=== PATIENT | female | born 1980 | race Two or more races ===

== ENCOUNTER 2022-03-18 17:24 | Emergency (ER) | payer SELFPAY ==
[~2022-03-18] VITALS: Ht 167.6 cm; Wt 108.9 kg
[2022-03-18 17:50] VITALS: BP 101/55
[2022-03-18] MEDS ORDERED: OMEP20TA44 PO (18:41)
== END 2022-03-18 19:05 | disposition home or self-care (01) ==
LOC: ER 17:24
DX: K29.70 Gastritis, unspecified, without bleeding (principal)
CPT/HCPCS: 93005

== ENCOUNTER 2023-03-26 22:56 | Emergency (ER) | payer MEDICAID ==
[~2023-03-26] VITALS: Ht 167.6 cm; Wt 109.0 kg
[~2023-03-26 22:56] MED LIST: OMEP20TA44 PO
[2023-03-26 23:24] LABS: Basophils # (auto) 0 10 ^3/uL (0-0.2); Basophils % (auto) 0.5 % (0.0-2.0); Eosinophils # (auto) 0.1 10 ^3/uL (0-0.8); Eosinophils % (auto) 1.3 % (0.0-7.0); Hematocrit 40.9 % (36.0-46.0); Lymphocytes # (auto) 2.3 10 ^3/uL (0.4-5.4); Lymphocytes % (auto) 26.1 % (10.0-50.0); Mean Corpuscular Hemoglobin 32.5 pg (28.0-32.0); Mean Corpuscular Hgb Conc. 34.2 g/dL (32.0-36.0); Monocytes # (auto) 0.6 10 ^3/uL (0-1.3); Monocytes % (auto) 6.6 % (0.0-12.0); Neutrophils # (auto) 5.8 10 ^3/uL (1.6-8.6); Neutrophils % (auto) 65.5 % (37.0-80.0); Red Blood Cells 4.31 10^6/uL (4.0-5.20); Red Cell Distribution Width 12.6 % (11.8-14.3); White Blood Cell 8.8 10^3/uL (4.4-10.8)
[2023-03-26 23:39] LABS: Albumin 3.1 g/dL (3.4-5.0); Calcium 8.4 mg/dL (8.5-10.1); Potassium 4.3 mmol/L (3.5-5.1)
[2023-03-26 23:42] LABS: Bilirubin, Total 0.3 mg/dL (0.2-1.0); Total Protein 7.2 g/dL (6.4-8.2)
[2023-03-27 03:07] LABS: Urine Bacteria FEW /hpf (None Seen); Urine Blood Negative /uL (Negative); Urine Specific Gravity 1.015 (1.001-1.035); Urine WBC 12 /hpf (0 - 5)
[2023-03-27] MEDS ORDERED: HYDROcodone-ACET 5/325MG TAB PO ONE (04:15)
[2023-03-27 06:00] VITALS: BP 95/55
[2023-03-27] MEDS ORDERED: PERCOT PO ×2 (06:30)
[2023-03-28] MEDS ORDERED: ACET1CAP14 PO (00:43)
[2023-03-28] MEDS ORDERED: IBUP200C14 PO (00:43)
== END 2023-03-27 06:43 | disposition home or self-care (01) ==
LOC: ER 22:56
DX: K80.20 Calculus of gallbladder without cholecystitis without obstruction (principal); R07.89 Other chest pain; K21.9 Gastro-esophageal reflux disease without esophagitis; R06.02 Shortness of breath; Z79.899 Other long term (current) drug therapy
CPT/HCPCS: 36415; 71045; 74176; 80053; 81001; 83735; 83880; 84484; 85025; 93005

== ENCOUNTER 2023-03-27 12:18 | Inpatient (IN) | payer MEDICAID ==
[~2023-03-27] VITALS: Ht 152.4 cm; Wt 114.6 kg
[~2023-03-27 12:18] MED LIST changes: +PERCOT PO
[2023-03-27] MEDS ORDERED: PANTOPRAZOLE 40 MG/10 ML VIAL INJ IV ONE (13:00)
[2023-03-27] MEDS ORDERED: ONDANSETRON HCL 4 MG/2 ML VIAL IV ONE (13:00)
[2023-03-27] MEDS ORDERED: SODIUM CHLORIDE 0.9% 1,000 ML IVB ONE (13:00)
[2023-03-27 13:23] LABS: Basophils # (auto) 0 10 ^3/uL (0-0.2); Basophils % (auto) 0.6 % (0.0-2.0); Eosinophils # (auto) 0.1 10 ^3/uL (0-0.8); Hematocrit 41.4 % (36.0-46.0); Hemoglobin 14.3 g/dL (12.2-16.2); Lymphocytes # (auto) 2.1 10 ^3/uL (0.4-5.4); Lymphocytes % (auto) 32.8 % (10.0-50.0); Mean Corpuscular Hemoglobin 32.5 pg (28.0-32.0); Mean Corpuscular Hgb Conc. 34.5 g/dL (32.0-36.0); Mean Corpuscular Volume 94.3 fL (80.0-100.0); Monocytes # (auto) 0.4 10 ^3/uL (0-1.3); Monocytes % (auto) 5.5 % (0.0-12.0); Neutrophils # (auto) 3.8 10 ^3/uL (1.6-8.6); Neutrophils % (auto) 60.1 % (37.0-80.0); Nucleated Red Blood Cells % 0.1 %; Red Blood Cells 4.39 10^6/uL (4.0-5.20); Red Cell Distribution Width 12.7 % (11.8-14.3); White Blood Cell 6.4 10^3/uL (4.4-10.8)
[2023-03-27] MEDS: MORPHINE SULFATE 4 MG/ML SYR/VIAL IV ONE ×2 (14:34→14:43)
[2023-03-27] MEDS ORDERED: HYDROcodone-ACET 5/325MG TAB PO ONE ×2 (14:45→21:00)
[2023-03-27] MEDS ORDERED: SODIUM CHLORIDE 0.9% 1,000 ML IV ONE (14:45)
[2023-03-27] MEDS: SODIUM CHLORIDE 0.9% 1,000 ML IV SCH ×2 (17:02→23:05)
[2023-03-27] MEDS ORDERED: ONDANSETRON HCL 4 MG/2 ML VIAL IV PRN (18:00)
[2023-03-27] MEDS: MORPHINE SULFATE INJ 2 MG/ml SYRG IV PRN (18:51)
[2023-03-27] MEDS ORDERED: KETOROLAC TROMETH 30 MG/ML 1ML VIAL IV ONE (21:00)
[2023-03-27] MEDS ORDERED: KETOROLAC TROMETH 30 MG/ML 1ML VIAL IV PRN (21:00)
[2023-03-27] MEDS: metroNIDAZOLE 500MG/100ML 100 ML IV SCH (22:44)
[2023-03-27 23:33] VITALS: BP 133/65
[2023-03-28] MEDS ORDERED: IBUP200C14 PO (00:43)
[2023-03-28] MEDS ORDERED: ACET1CAP14 PO (00:43)
[2023-03-28] MEDS: metroNIDAZOLE 500MG/100ML 100 ML IV SCH (05:33)
[2023-03-28 05:36] LABS: Basophils # (auto) 0 10 ^3/uL (0-0.2); Basophils % (auto) 0.3 % (0.0-2.0); Eosinophils # (auto) 0 10 ^3/uL (0-0.8); Eosinophils % (auto) 0.2 % (0.0-7.0); Hematocrit 37.3 % (36.0-46.0); Hemoglobin 12.9 g/dL (12.2-16.2); Lymphocytes # (auto) 1.4 10 ^3/uL (0.4-5.4); Lymphocytes % (auto) 19.2 % (10.0-50.0); Mean Corpuscular Hemoglobin 32.5 pg (28.0-32.0); Mean Corpuscular Hgb Conc. 34.5 g/dL (32.0-36.0); Mean Corpuscular Volume 94.1 fL (80.0-100.0); Monocytes # (auto) 0.5 10 ^3/uL (0-1.3); Monocytes % (auto) 7.3 % (0.0-12.0); Neutrophils # (auto) 5.1 10 ^3/uL (1.6-8.6); Nucleated Red Blood Cells % 0.1 %; Red Blood Cells 3.96 10^6/uL (4.0-5.20); Red Cell Distribution Width 12.6 % (11.8-14.3)
[2023-03-28 05:56] LABS: Albumin 2.6 g/dL (3.4-5.0); BUN/Creatinine Ratio 11.3 (10.0-20.0); Calcium 7.7 mg/dL (8.5-10.1); Potassium 3.6 mmol/L (3.5-5.1)
[2023-03-28 05:59] LABS: Bilirubin, Total 3.1 mg/dL (0.2-1.0); Total Protein 6.1 g/dL (6.4-8.2)
[2023-03-28 08:21] LABS: INR 1.05 (0.9-1.15); Partial Thromboplastin Time 26.3 SEC (24.5-34.5)
[2023-03-28 08:30] VITALS: BP 162/73
[2023-03-28] MEDS ORDERED: cefTRIAXone 1GM/50ML D5W 50 ML IV SCH (09:00)
[2023-03-28] MEDS: PANTOPRAZOLE 40 MG/10 ML VIAL INJ IV SCH (09:11)
[2023-03-28] MEDS: SODIUM CHLORIDE 0.9% 1,000 ML IV SCH (09:11)
[2023-03-28] MEDS ORDERED: MIDAZOLAM HCL 2MG/2ML 2ml VIAL (1mg/ml) ONE (10:49)
[2023-03-28] MEDS ORDERED: fentaNYL CITRATE 100 MCG/2 ML VL ONE (10:49)
[2023-03-28] MEDS ORDERED: MEPERIDINE HCL (50 MG/ML) 1 ML VIAL ONE (10:49)
[2023-03-28] MEDS ORDERED: PROPOFOL 10 MG/ML 20 ML IV ONE (12:05)
[2023-03-28] MEDS ORDERED: DexAMETHasone SOD PHOS 10MG/1ML VIAL INJ ONE (12:05)
[2023-03-28] MEDS ORDERED: MORPHINE SULFATE 4 MG/ML SYR/VIAL IV PRN (12:15)
[2023-03-28] MEDS ORDERED: ePHEDrine SULFATE 50 MG/ML AMP IV PRN (12:15)
[2023-03-28] MEDS ORDERED: MIDAZOLAM HCL 2MG/2ML 2ml VIAL (1mg/ml) IV PRN (12:15)
[2023-03-28] MEDS ORDERED: ONDANSETRON HCL 4 MG/2 ML VIAL IV PRN (12:15)
[2023-03-28] MEDS ORDERED: LABETALOL HCL 5 MG/ML 4ML SYRINGE IV PRN (12:15)
[2023-03-28] MEDS ORDERED: HYDROmorphone HCL 2 MG/ML VL/or syr IV PRN (12:15)
[2023-03-28] MEDS ORDERED: ETOMIDATE (2MG/ML) 20ML VIAL IV ONE (13:29)
[2023-03-28] MEDS ORDERED: ROCURONIUM 10MG/ML 10ML VIAL IV ONE (13:29)
[2023-03-28] MEDS ORDERED: ONDANSETRON HCL 4 MG/2 ML VIAL IV ONE (13:29)
[2023-03-28 16:30] VITALS: BP 115/74
[2023-03-28] MEDS: MORPHINE SULFATE INJ 2 MG/ml SYRG IV PRN (16:50)
[2023-03-28 22:00] VITALS: BP 119/70
[2023-03-29] MEDS: MORPHINE SULFATE INJ 2 MG/ml SYRG IV PRN (01:13)
[2023-03-29 05:00] VITALS: BP 117/66
[2023-03-29 06:46] LABS: Potassium 3.8 mmol/L (3.5-5.1)
[2023-03-29 06:48] LABS: Basophils # (auto) 0 10 ^3/uL (0-0.2); Basophils % (auto) 0.1 % (0.0-2.0); Eosinophils # (auto) 0 10 ^3/uL (0-0.8); Hematocrit 36.3 % (36.0-46.0); Hemoglobin 12.5 g/dL (12.2-16.2); Lymphocytes % (auto) 13.2 % (10.0-50.0); Mean Corpuscular Hemoglobin 32.4 pg (28.0-32.0); Mean Corpuscular Hgb Conc. 34.3 g/dL (32.0-36.0); Mean Corpuscular Volume 94.4 fL (80.0-100.0); Monocytes # (auto) 0.4 10 ^3/uL (0-1.3); Monocytes % (auto) 5.2 % (0.0-12.0); Neutrophils # (auto) 6.1 10 ^3/uL (1.6-8.6); Neutrophils % (auto) 81.5 % (37.0-80.0); Red Blood Cells 3.85 10^6/uL (4.0-5.20); Red Cell Distribution Width 12.8 % (11.8-14.3); White Blood Cell 7.5 10^3/uL (4.4-10.8)
[2023-03-29 06:56] LABS: Albumin 2.6 g/dL (3.4-5.0); BUN/Creatinine Ratio 6.7 (10.0-20.0); Bilirubin, Total 2.7 mg/dL (0.2-1.0); Calcium 8.2 mg/dL (8.5-10.1); Total Protein 6.2 g/dL (6.4-8.2)
[2023-03-29 08:00] VITALS: BP 130/73
[2023-03-29] MEDS: PANTOPRAZOLE 40 MG/10 ML VIAL INJ IV SCH (08:38)
[2023-03-29 12:00] VITALS: BP 117/66
[2023-03-29 16:00] VITALS: BP 114/68
[2023-03-29 22:00] VITALS: BP 124/65
[2023-03-30] MEDS ORDERED: MELATONIN 5 MG TAB PO ONE (00:15)
[2023-03-30 05:00] VITALS: BP 107/57
[2023-03-30 05:51] LABS: Albumin 2.6 g/dL (3.4-5.0); Calcium 8.2 mg/dL (8.5-10.1); Potassium 3.5 mmol/L (3.5-5.1)
[2023-03-30 05:54] LABS: BUN/Creatinine Ratio 7.8 (10.0-20.0); Bilirubin, Total 1.1 mg/dL (0.2-1.0); Total Protein 6.6 g/dL (6.4-8.2)
[2023-03-30 06:25] LABS: Basophils # (auto) 0 10 ^3/uL (0-0.2); Basophils % (auto) 0.3 % (0.0-2.0); Eosinophils # (auto) 0 10 ^3/uL (0-0.8); Eosinophils % (auto) 0.6 % (0.0-7.0); Hematocrit 37.6 % (36.0-46.0); Hemoglobin 12.9 g/dL (12.2-16.2); Lymphocytes # (auto) 1.2 10 ^3/uL (0.4-5.4); Lymphocytes % (auto) 19.2 % (10.0-50.0); Mean Corpuscular Hemoglobin 32.5 pg (28.0-32.0); Mean Corpuscular Hgb Conc. 34.3 g/dL (32.0-36.0); Mean Corpuscular Volume 94.8 fL (80.0-100.0); Monocytes # (auto) 0.3 10 ^3/uL (0-1.3); Monocytes % (auto) 5.2 % (0.0-12.0); Neutrophils # (auto) 4.5 10 ^3/uL (1.6-8.6); Neutrophils % (auto) 74.7 % (37.0-80.0); Nucleated Red Blood Cells % 0.2 %; Red Blood Cells 3.96 10^6/uL (4.0-5.20); Red Cell Distribution Width 12.7 % (11.8-14.3)
[2023-03-30 09:00] VITALS: BP 118/65
[2023-03-30] MEDS ORDERED: LEVO500T91 PO (10:23)
[2023-03-30] MEDS ORDERED: MET500T PO (10:23)
[2023-03-30] MEDS ORDERED: HYDR-4902 PO (10:23)
[2023-03-30] MEDS ORDERED: PANT40T PO (10:26)
[2023-03-30] MEDS: PANTOPRAZOLE 40 MG/10 ML VIAL INJ IV SCH (11:43)
[2023-03-30 14:00] VITALS: BP 119/71
[2023-03-30 14:35] LABS: Basophils # (auto) 0 10 ^3/uL (0-0.2); Basophils % (auto) 0.3 % (0.0-2.0); Eosinophils # (auto) 0 10 ^3/uL (0-0.8); Eosinophils % (auto) 0.6 % (0.0-7.0); Hemoglobin 14.1 g/dL (12.2-16.2); Lymphocytes # (auto) 0.6 10 ^3/uL (0.4-5.4); Lymphocytes % (auto) 16.3 % (10.0-50.0); Mean Corpuscular Hemoglobin 32.3 pg (28.0-32.0); Mean Corpuscular Hgb Conc. 33.5 g/dL (32.0-36.0); Mean Corpuscular Volume 96.4 fL (80.0-100.0); Monocytes # (auto) 0 10 ^3/uL (0-1.3); Monocytes % (auto) 0.5 % (0.0-12.0); Neutrophils # (auto) 2.9 10 ^3/uL (1.6-8.6); Neutrophils % (auto) 82.3 % (37.0-80.0); Nucleated Red Blood Cells % 0.1 %; Red Blood Cells 4.36 10^6/uL (4.0-5.20); White Blood Cell 3.5 10^3/uL (4.4-10.8)
[2023-03-30] MEDS: ACETAMINOPHEN 325 MG TAB PO PRN (14:41)
[2023-03-30 14:59] LABS: Calcium 8.4 mg/dL (8.5-10.1); Potassium 3.4 mmol/L (3.5-5.1)
[2023-03-30 15:00] LABS: BUN/Creatinine Ratio 6.5 (10.0-20.0)
[2023-03-30 17:00] VITALS: BP 109/61
[2023-03-30 22:00] VITALS: BP 98/52
[2023-03-31] MEDS: ACETAMINOPHEN 325 MG TAB PO PRN (04:36)
[2023-03-31 05:00] VITALS: BP 95/57
[2023-03-31 06:37] LABS: Basophils # (auto) 0 10 ^3/uL (0-0.2); Basophils % (auto) 0.2 % (0.0-2.0); Eosinophils # (auto) 0 10 ^3/uL (0-0.8); Eosinophils % (auto) 0.1 % (0.0-7.0); Hematocrit 37.9 % (36.0-46.0); Hemoglobin 13.2 g/dL (12.2-16.2); Lymphocytes # (auto) 0.6 10 ^3/uL (0.4-5.4); Lymphocytes % (auto) 5.3 % (10.0-50.0); Mean Corpuscular Hemoglobin 32.8 pg (28.0-32.0); Mean Corpuscular Hgb Conc. 34.8 g/dL (32.0-36.0); Mean Corpuscular Volume 94.2 fL (80.0-100.0); Monocytes # (auto) 0.4 10 ^3/uL (0-1.3); Monocytes % (auto) 3.8 % (0.0-12.0); Neutrophils # (auto) 9.5 10 ^3/uL (1.6-8.6); Neutrophils % (auto) 90.6 % (37.0-80.0); Nucleated Red Blood Cells % 0.2 %; Red Blood Cells 4.02 10^6/uL (4.0-5.20); Red Cell Distribution Width 12.4 % (11.8-14.3); White Blood Cell 10.5 10^3/uL (4.4-10.8)
[2023-03-31 08:40] LABS: Albumin 2.5 g/dL (3.4-5.0); Potassium 3.1 mmol/L (3.5-5.1)
[2023-03-31 08:44] LABS: BUN/Creatinine Ratio 8.2 (10.0-20.0); Bilirubin, Total 1.2 mg/dL (0.2-1.0); Total Protein 6.5 g/dL (6.4-8.2)
[2023-03-31 08:52] LABS: Hepatitis B Surface Antibody Negative (Negative)
[2023-03-31 09:10] VITALS: BP 98/62
[2023-03-31 09:25] LABS: Hepatitis A Total Antibody Positive (Negative)
[2023-03-31] MEDS: PANTOPRAZOLE 40 MG/10 ML VIAL INJ IV SCH (11:12)
[2023-03-31] MEDS: cefTRIAXone 1GM/50ML D5W 50 ML IV SCH (11:12)
[2023-03-31 13:17] VITALS: BP 96/54
[2023-03-31 13:36] LABS: Hepatitis C Antibody Negative (Negative)
[2023-03-31] MEDS ORDERED: ACETAMINOPHEN 325 MG TAB PO PRN (14:45)
[2023-03-31 16:51] VITALS: BP 99/75
[2023-03-31] MEDS: metroNIDAZOLE 500 MG TAB PO SCH (21:35)
[2023-03-31 22:00] VITALS: BP 100/57
[2023-04-01 05:00] VITALS: BP 57/57
[2023-04-01] MEDS: metroNIDAZOLE 500 MG TAB PO SCH ×2 (05:18→14:00)
[2023-04-01 07:46] LABS: Albumin 2.6 g/dL (3.4-5.0); Calcium 8.5 mg/dL (8.5-10.1); Potassium 3.2 mmol/L (3.5-5.1)
[2023-04-01 07:50] LABS: BUN/Creatinine Ratio 11.8 (10.0-20.0); Bilirubin, Total 0.8 mg/dL (0.2-1.0); Total Protein 6.9 g/dL (6.4-8.2)
[2023-04-01 09:00] VITALS: BP 109/62
[2023-04-01] MEDS: cefTRIAXone 1GM/50ML D5W 50 ML IV SCH (10:39)
[2023-04-01] MEDS: PANTOPRAZOLE 40 MG/10 ML VIAL INJ IV SCH (10:39)
[2023-04-01 13:00] VITALS: BP 109/60
== END 2023-04-01 13:30 | disposition home or self-care (01) | DRG 263 ==
LOC: ER 12:18 → OVERFLOW 15:08 → CENTRAL 23:30
PROVIDERS: ADMIT Nurse Practitioner Family; ATTEND Family Medicine
PROC: 0FT44ZZ Resection of Gallbladder, Percutaneous Endoscopic Approach (ICD-10-PCS; principal; 2023-03-28 10:55)
DX: K80.12 Calculus of gallbladder with acute and chronic cholecystitis without obstruction (principal); R16.0 Hepatomegaly, not elsewhere classified; E66.01 Morbid (severe) obesity due to excess calories; E86.0 Dehydration; K21.9 Gastro-esophageal reflux disease without esophagitis; R79.89 Other specified abnormal findings of blood chemistry; Z68.41 Body mass index [BMI] 40.0-44.9, adult; Z82.0 Family history of epilepsy and other diseases of the nervous system; Z82.5 Family history of asthma and other chronic lower respiratory diseases; Z83.3 Family history of diabetes mellitus
CPT/HCPCS: 36415; 76705; 80048; 80053; 82247; 83690; 84484; 84702; 85025; 85610; 85730; 86704; 86706; 86708; 86803; 86850; 86900; 86901; 87040; 87070; 87205; 87340; 93005; 93306; C9113; G0378; J0696; J1100; J1885; J2250; J2405; J2704; J3490

== ENCOUNTER 2023-04-16 12:57 | Emergency (ER) | payer MEDICAID ==
[~2023-04-16] VITALS: Ht 167.6 cm; Wt 90.9 kg
[~2023-04-16 12:57] MED LIST changes: +ACET1CAP14 PO; +HYDR-4902 PO; +IBUP200C14 PO; +LEVO500T91 PO; +MET500T PO; -OMEP20TA44 PO; +PANT40T PO; -PERCOT PO
[2023-04-16 14:38] LABS: Basophils # (auto) 0 10 ^3/uL (0-0.2); Basophils % (auto) 0.4 % (0.0-2.0); Eosinophils # (auto) 0 10 ^3/uL (0-0.8); Eosinophils % (auto) 0.6 % (0.0-7.0); Hematocrit 40.5 % (36.0-46.0); Hemoglobin 13.7 g/dL (12.2-16.2); Lymphocytes # (auto) 0.9 10 ^3/uL (0.4-5.4); Lymphocytes % (auto) 11.7 % (10.0-50.0); Mean Corpuscular Hgb Conc. 33.9 g/dL (32.0-36.0); Mean Corpuscular Volume 94.4 fL (80.0-100.0); Monocytes # (auto) 0.4 10 ^3/uL (0-1.3); Neutrophils # (auto) 6.4 10 ^3/uL (1.6-8.6); Neutrophils % (auto) 82.3 % (37.0-80.0); Nucleated Red Blood Cells % 0.1 %; Red Blood Cells 4.29 10^6/uL (4.0-5.20); Red Cell Distribution Width 12.8 % (11.8-14.3); White Blood Cell 7.7 10^3/uL (4.4-10.8)
[2023-04-16 15:01] LABS: INR 1.01 (0.9-1.15)
[2023-04-16 15:02] LABS: Albumin 3.1 g/dL (3.4-5.0); Calcium 8.6 mg/dL (8.5-10.1); Potassium 3.9 mmol/L (3.5-5.1)
[2023-04-16 15:05] LABS: BUN/Creatinine Ratio 10.5 (10.0-20.0); Bilirubin, Total 0.6 mg/dL (0.2-1.0)
[2023-04-17 13:44] VITALS: BP 114/57; PULSE 73; RESP 17; TEMP 97.7; O2SAT 100
== END 2023-04-17 14:26 | disposition short-term general hospital (02) ==
LOC: EDBD 12:57 → ER 12:57
DX: K80.50 Calculus of bile duct without cholangitis or cholecystitis without obstruction (principal); R10.11 Right upper quadrant pain; K21.9 Gastro-esophageal reflux disease without esophagitis; R74.8 Abnormal levels of other serum enzymes; Z90.49 Acquired absence of other specified parts of digestive tract
CPT/HCPCS: 36415; 74181; 76705; 80053; 83690; 85025; 85610; 85730

== ENCOUNTER 2023-05-06 09:10 | Emergency (ER) | payer MEDICAID ==
[~2023-05-06] VITALS: Ht 167.6 cm; Wt 103.6 kg
[2023-05-06 10:22] LABS: Basophils # (auto) 0 10 ^3/uL (0-0.2); Basophils % (auto) 0.5 % (0.0-2.0); Eosinophils # (auto) 0.1 10 ^3/uL (0-0.8); Eosinophils % (auto) 1.6 % (0.0-7.0); Hematocrit 41.5 % (36.0-46.0); Hemoglobin 14.2 g/dL (12.2-16.2); Lymphocytes # (auto) 1.7 10 ^3/uL (0.4-5.4); Lymphocytes % (auto) 30.1 % (10.0-50.0); Mean Corpuscular Hemoglobin 32.2 pg (28.0-32.0); Mean Corpuscular Hgb Conc. 34.3 g/dL (32.0-36.0); Mean Corpuscular Volume 93.8 fL (80.0-100.0); Monocytes # (auto) 0.3 10 ^3/uL (0-1.3); Monocytes % (auto) 5.5 % (0.0-12.0); Neutrophils # (auto) 3.4 10 ^3/uL (1.6-8.6); Neutrophils % (auto) 62.3 % (37.0-80.0); Nucleated Red Blood Cells % 0.1 %; Red Blood Cells 4.42 10^6/uL (4.0-5.20); Red Cell Distribution Width 13.1 % (11.8-14.3); White Blood Cell 5.5 10^3/uL (4.4-10.8)
[2023-05-06 10:26] LABS: Urine Bacteria NONE SEEN /hpf (None Seen); Urine Blood Negative /uL (Negative); Urine Clarity HAZY (Clear); Urine Color Yellow (Yellow); Urine Mucus FEW (None Seen); Urine Protein, UAD TRACE (Negative); Urine Specific Gravity 1.026 (1.001-1.035); Urine Urobilinogen Normal (Negative); Urine WBC 4 /hpf (0 - 5); Urine pH 5.5 (5.0-8.0)
[2023-05-06 10:37] LABS: Albumin 3.4 g/dL (3.4-5.0); Calcium 8.6 mg/dL (8.5-10.1); Potassium 4.2 mmol/L (3.5-5.1)
[2023-05-06 10:39] LABS: BUN/Creatinine Ratio 16.5 (10.0-20.0)
[2023-05-06 10:41] LABS: Bilirubin, Total 0.6 mg/dL (0.2-1.0)
[2023-05-06] MEDS ORDERED: ONDANSETRON HCL 4 MG/2 ML VIAL IV ONE (12:00)
[2023-05-06] MEDS ORDERED: MORPHINE SULFATE 4 MG/ML SYR/VIAL IV ONE (12:00)
[2023-05-06] MEDS ORDERED: PANTOPRAZOLE 40 MG/10 ML VIAL INJ IV ONE (12:00)
[2023-05-06 12:53] VITALS: BP 116/59; PULSE 67; RESP 19; O2SAT 100
[2023-05-06] MEDS ORDERED: ZOFR4T PO (12:58)
[2023-05-06] MEDS ORDERED: TRAM50TA2 PO (12:58)
[2023-05-06] MEDS ORDERED: PANT40TA2 PO (13:00)
== END 2023-05-06 13:11 | disposition home or self-care (01) ==
LOC: ER 09:10
DX: R10.13 Epigastric pain (principal); K21.9 Gastro-esophageal reflux disease without esophagitis; Z90.49 Acquired absence of other specified parts of digestive tract; Z79.1 Long term (current) use of non-steroidal anti-inflammatories (NSAID); Z79.2 Long term (current) use of antibiotics; Z79.899 Other long term (current) drug therapy
CPT/HCPCS: 36415; 71260; 74177; 80053; 81001; 83690; 84484; 85025; 93005; 96374; 96375; 99285; C9113; J2405; Q9967

== ENCOUNTER 2023-05-09 05:30 | Emergency (ER) | payer MEDICAID ==
[~2023-05-09] VITALS: Ht 165.1 cm; Wt 81.0 kg
[~2023-05-09 05:30] MED LIST changes: +PANT40TA2 PO; +TRAM50TA2 PO; +ZOFR4T PO
[2023-05-09 06:52] LABS: Basophils # (auto) 0 10 ^3/uL (0-0.2); Basophils % (auto) 0.2 % (0.0-2.0); Eosinophils # (auto) 0.1 10 ^3/uL (0-0.8); Eosinophils % (auto) 0.6 % (0.0-7.0); Hematocrit 40.1 % (36.0-46.0); Hemoglobin 13.8 g/dL (12.2-16.2); Lymphocytes # (auto) 1.1 10 ^3/uL (0.4-5.4); Lymphocytes % (auto) 11.2 % (10.0-50.0); Mean Corpuscular Hemoglobin 32.2 pg (28.0-32.0); Mean Corpuscular Hgb Conc. 34.5 g/dL (32.0-36.0); Mean Corpuscular Volume 93.4 fL (80.0-100.0); Monocytes # (auto) 0.4 10 ^3/uL (0-1.3); Monocytes % (auto) 3.9 % (0.0-12.0); Neutrophils # (auto) 7.9 10 ^3/uL (1.6-8.6); Neutrophils % (auto) 84.1 % (37.0-80.0); Nucleated Red Blood Cells % 0.1 %; Red Blood Cells 4.29 10^6/uL (4.0-5.20); Red Cell Distribution Width 12.9 % (11.8-14.3); White Blood Cell 9.4 10^3/uL (4.4-10.8)
[2023-05-09 07:09] LABS: Potassium 3.8 mmol/L (3.5-5.1)
[2023-05-09 07:16] LABS: Albumin 2.9 g/dL (3.4-5.0); BUN/Creatinine Ratio 18.6 (10.0-20.0); Bilirubin, Total 0.6 mg/dL (0.2-1.0); Total Protein 6.9 g/dL (6.4-8.2)
[2023-05-09 07:33] LABS: Calcium 8.8 mg/dL (8.5-10.1)
[2023-05-09 09:51] LABS: Urine Bacteria NONE SEEN /hpf (None Seen); Urine Blood Negative /uL (Negative); Urine Clarity Clear (Clear); Urine Color Yellow (Yellow); Urine Mucus FEW (None Seen); Urine Protein, UAD TRACE (Negative); Urine Specific Gravity 1.029 (1.001-1.035); Urine WBC 3 /hpf (0 - 5); Urine pH 5.5 (5.0-8.0)
[2023-05-09] MEDS ORDERED: HYDROcodone-ACET 5/325MG TAB PO PRN (13:30)
[2023-05-09] MEDS ORDERED: ACETAMINOPHEN 325 MG TAB PO PRN (13:30)
[2023-05-09] MEDS ORDERED: MORPHINE SULFATE INJ 2 MG/ml SYRG IV PRN ×2 (13:30)
[2023-05-09] MEDS ORDERED: NITROGLYCERIN 0.4 MG SL TAB SL PRN (13:30)
[2023-05-09 14:21] LABS: Alcohol, Urine < 3.0 mg/dL (0-10); Amphetamine Screen, Urine NEGATIVE (NEGATIVE); Barbiturate Scree,Urine NEGATIVE (NEGATIVE); Benzodiazephine Screen, Urine NEGATIVE (NEGATIVE); Cannabinoid Screen, Urine NEGATIVE (NEGATIVE); Cocaine Screen, Urine NEGATIVE (NEGATIVE); Opiate Scree,Urine POSITIVE (NEGATIVE); Phencyclidine Screen, Urine NEGATIVE (NEGATIVE)
[2023-05-09] MEDS ORDERED: PROMETHAZINE HCL 25 MG/ML 1ML IV ONE (15:45)
[2023-05-09 19:30] VITALS: PULSE 74; RESP 20; O2SAT 96
[2023-05-09 19:50] VITALS: PULSE 82; RESP 20; O2SAT 96
[2023-05-09 20:29] VITALS: BP 110/62; PULSE 72; RESP 20; TEMP 98.3; O2SAT 97
== END 2023-05-09 13:49 | disposition short-term general hospital (02) ==
LOC: ER 05:30 → EDBD 05:30 → UNDOADMIN 13:18 → OVERFLOW 13:18 → ER 13:49
DX: K21.9 Gastro-esophageal reflux disease without esophagitis (principal); R10.12 Left upper quadrant pain; Z79.899 Other long term (current) drug therapy; Z90.49 Acquired absence of other specified parts of digestive tract
CPT/HCPCS: 36415; 74176; 80053; 80307; 81001; 83036; 83690; 84484; 85025; 93005; 96374; 96375; 99285; J2270; J2550

== ENCOUNTER 2023-05-21 08:30 | Inpatient (IN) | payer MEDICAID ==
[~2023-05-21] VITALS: Ht 167.6 cm; Wt 103.0 kg
[2023-05-21 09:05] LABS: Basophils # (auto) 0 10 ^3/uL (0-0.2); Basophils % (auto) 0.7 % (0.0-2.0); Eosinophils # (auto) 0.1 10 ^3/uL (0-0.8); Eosinophils % (auto) 1.9 % (0.0-7.0); Hematocrit 42.9 % (36.0-46.0); Hemoglobin 14.7 g/dL (12.2-16.2); Lymphocytes # (auto) 1.7 10 ^3/uL (0.4-5.4); Lymphocytes % (auto) 36.9 % (10.0-50.0); Mean Corpuscular Hemoglobin 32.1 pg (28.0-32.0); Mean Corpuscular Hgb Conc. 34.3 g/dL (32.0-36.0); Mean Corpuscular Volume 93.4 fL (80.0-100.0); Monocytes # (auto) 0.2 10 ^3/uL (0-1.3); Monocytes % (auto) 5.4 % (0.0-12.0); Neutrophils # (auto) 2.5 10 ^3/uL (1.6-8.6); Neutrophils % (auto) 55.1 % (37.0-80.0); Nucleated Red Blood Cells % 0.1 %; Red Blood Cells 4.59 10^6/uL (4.0-5.20); Red Cell Distribution Width 13.4 % (11.8-14.3); White Blood Cell 4.6 10^3/uL (4.4-10.8)
[2023-05-21 09:39] LABS: Alanine Aminotransferase 165 U/L (7-40); Albumin 4.1 g/dL (3.2-4.8); Alkaline Phosphatase 193 U/L (46-116); Anion Gap 8.6 (5-15); Aspartate Aminotransferase 34 U/L (13-40); BUN/Creatinine Ratio 13.5 (10.0-20.0); Bilirubin, Total 0.7 mg/dL (0.2-1.0); Blood Urea Nitrogen 10 mg/dL (9-23); Carbon Dioxide 24.4 mmol/L (20-30); Chloride 107 mmol/L (98-107); Glucose 92 mg/dL (74-106); Potassium 4.1 mmol/L (3.5-5.1); Sodium 140 mmol/L (136-145); Total Protein 6.7 g/dL (5.7-8.2)
[2023-05-21 10:04] LABS: Urine Bacteria NONE SEEN /hpf (None Seen); Urine Blood Negative /uL (Negative); Urine Clarity HAZY (Clear); Urine Color Yellow (Yellow); Urine Protein, UAD Negative (Negative); Urine Specific Gravity 1.021 (1.001-1.035); Urine Urobilinogen Normal (Negative); Urine WBC 1 /hpf (0 - 5)
[2023-05-21] MEDS ORDERED: SODIUM CHLORIDE 0.9% 1,000 ML IV ONE ×2 (11:45)
[2023-05-21] MEDS ORDERED: MORPHINE SULFATE INJ 2 MG/ml SYRG IV PRN ×3 (16:15→17:30)
[2023-05-21] MEDS ORDERED: NITROGLYCERIN 0.4 MG SL TAB SL PRN (16:15)
[2023-05-21] MEDS ORDERED: ONDANSETRON HCL 4 MG/2 ML VIAL IV PRN (16:45)
[2023-05-21] MEDS: metroNIDAZOLE 500MG/100ML 100 ML IV SCH ×2 (17:20→23:50)
[2023-05-21] MEDS: levoFLOXacin 500MG 100 ML IV SCH (17:20)
[2023-05-21] MEDS: D5W/SOD CHL 0.45% 1,000 ML IV SCH (17:20)
[2023-05-21 17:22] LABS: Lipase 48 U/L (12-53)
[2023-05-21 17:24] LABS: Amylase 78 U/L (30-118)
[2023-05-21 17:26] LABS: INR 0.99 (0.9-1.15); Partial Thromboplastin Time 30.1 SEC (24.5-34.5); Prothrombin Time 10.4 sec (9.3-11.8)
[2023-05-21] MEDS: PANTOPRAZOLE 40 MG/10 ML VIAL INJ IV SCH (17:28)
[2023-05-21 18:30] VITALS: PULSE 71; RESP 16; O2SAT 97
[2023-05-21 21:15] VITALS: PULSE 75; RESP 14; O2SAT 98
[2023-05-22] VITALS: TEMP 98.4
[2023-05-22] MEDS: metroNIDAZOLE 500MG/100ML 100 ML IV SCH (06:18)
[2023-05-22 06:44] LABS: Basophils # (auto) 0 10 ^3/uL (0-0.2); Basophils % (auto) 0.5 % (0.0-2.0); Eosinophils # (auto) 0.1 10 ^3/uL (0-0.8); Eosinophils % (auto) 1.1 % (0.0-7.0); Hematocrit 39.8 % (36.0-46.0); Hemoglobin 13.6 g/dL (12.2-16.2); Lymphocytes # (auto) 1.8 10 ^3/uL (0.4-5.4); Lymphocytes % (auto) 38.4 % (10.0-50.0); Mean Corpuscular Hemoglobin 31.7 pg (28.0-32.0); Mean Corpuscular Hgb Conc. 34.3 g/dL (32.0-36.0); Mean Corpuscular Volume 92.3 fL (80.0-100.0); Monocytes # (auto) 0.3 10 ^3/uL (0-1.3); Neutrophils # (auto) 2.5 10 ^3/uL (1.6-8.6); Nucleated Red Blood Cells % 0.1 %; Red Blood Cells 4.31 10^6/uL (4.0-5.20); White Blood Cell 4.8 10^3/uL (4.4-10.8)
[2023-05-22] MEDS: D5W/SOD CHL 0.45% 1,000 ML IV SCH (06:45)
[2023-05-22 06:48] LABS: Alanine Aminotransferase 117 U/L (7-40); Albumin 3.7 g/dL (3.2-4.8); Alkaline Phosphatase 163 U/L (46-116); Anion Gap 6.6 (5-15); Aspartate Aminotransferase 30 U/L (13-40); BUN/Creatinine Ratio 10.4 (10.0-20.0); Bilirubin, Total 1.1 mg/dL (0.2-1.0); Blood Urea Nitrogen 7 mg/dL (9-23); Calcium 8.9 mg/dL (8.5-10.1); Carbon Dioxide 25.4 mmol/L (20-30); Chloride 106 mmol/L (98-107); Cholesterol 144 mg/dL (< 200); Glucose 83 mg/dL (74-106); HDL Cholesterol 37 mg/dL (40-59); LDL Cholesterol 97 mg/dL (< 100); Potassium 3.7 mmol/L (3.5-5.1); Sodium 138 mmol/L (136-145); Total Protein 6.3 g/dL (5.7-8.2); Triglycerides 104 mg/dL (< 150)
[2023-05-22 07:30] VITALS: BP 110/56
[2023-05-22 08:00] VITALS: PULSE 65; RESP 15; O2SAT 98
[2023-05-22 10:00] VITALS: PULSE 74; RESP 15
[2023-05-22] MEDS: PANTOPRAZOLE 40 MG/10 ML VIAL INJ IV SCH (10:00)
[2023-05-22] MEDS: levoFLOXacin 500MG 100 ML IV SCH (10:00)
[2023-05-22] MEDS ORDERED: ACETAMINOPHEN 325 MG TAB PO PRN (10:00)
[2023-05-22] MEDS ORDERED: HYDROcodone-ACET 5/325MG TAB PO PRN (10:00)
== END 2023-05-22 12:00 | disposition home or self-care (01) | DRG 251 ==
LOC: ER 08:30 → OVERFLOW 14:09
PROVIDERS: ADMIT Internal Medicine; ATTEND Student in an Organized Health Care Education/Training Program
DX: R10.9 Unspecified abdominal pain (principal); E66.8 Other obesity; R11.2 Nausea with vomiting, unspecified; Z68.36 Body mass index [BMI] 36.0-36.9, adult; Z90.49 Acquired absence of other specified parts of digestive tract; Z82.5 Family history of asthma and other chronic lower respiratory diseases; Z83.3 Family history of diabetes mellitus; Z87.898 Personal history of other specified conditions
CPT/HCPCS: 36415; 74176; 78226; 80053; 80061; 81001; 82150; 83690; 84478; 84702; 85025; 85610; 85730; 96361; 96365; C9113; G0378; J1956; J2405; J3490